=== PATIENT | female | born 2000 | race Caucasian/White ===

== ENCOUNTER 2018-12-27 10:14 | Emergency (ER) | payer OTHER ==
[~2018-12-27] VITALS: Ht 160 cm; Wt 55.0 kg
[~2018-12-27 10:14] MED LIST: BACTRIM DS1 TAB PO; CEPHALEXIN500 MG PO; ZITHROMAX250 MG PO
[2018-12-27] MEDS ORDERED: JUNEL FE PO (10:45)
[2018-12-27 10:54] VITALS: BP 124/73
== END 2018-12-27 10:54 | disposition home or self-care (01) | DRG 916 ==
LOC: ED 10:14
DX: T78.40XA Allergy, unspecified, initial encounter (principal); X58.XXXA Exposure to other specified factors, initial encounter